=== PATIENT | female | born 1965 | race Caucasian/White ===

== ENCOUNTER 2016-05-07 07:29 | Day surgery (SDC) | payer OTHER ==
[~2016-05-07 07:29] MED LIST: LIDOCAINE 2% (PRES FREE) 5 ML VIAL ONE; PROPOFOL 40 ML IV ONE
[2016-05-07] MEDS ORDERED: IV START KIT ONE (07:32)
[2016-05-07] MEDS ORDERED: LACTATED RINGERS 1,000 ML ONE (07:32)
[2016-05-07] MEDS ORDERED: LACTATED RINGERS 1,000 ML IV SCH (07:45)
== END 2016-05-07 10:02 | disposition home or self-care (01) ==
LOC: SDC 07:29
PROVIDERS: ATTEND Family Medicine
PROC: 0DJD8ZZ Inspection of Lower Intestinal Tract, Via Natural or Artificial Opening Endoscopic (ICD-10-PCS; principal; 2016-05-07)
DX: Z12.11 Encounter for screening for malignant neoplasm of colon (principal); E03.9 Hypothyroidism, unspecified; F41.1 Generalized anxiety disorder
CPT/HCPCS: 45378; J7120